=== PATIENT | female | born 2000 ===

== ENCOUNTER 2018-09-19 01:34 | Emergency (ER) | payer SELFPAY ==
[2018-09-19] MEDS ORDERED: DUONEB *Not for PRN Use IH ONE (01:37)
[2018-09-19] MEDS ORDERED: MAGNESIUM SULFATE 2GM/50ML 2 GM/50 ML BAG IV ONE ×2 (01:48→01:51)
[2018-09-19] MEDS ORDERED: SOLU-Medrol IV ONE (01:48)
[2018-09-19] MEDS ORDERED: PROVENTIL IH ONE (01:48)
[2018-09-19] MEDS ORDERED: ATROVENT IH ONE (01:48)
[2018-09-19] MEDS ORDERED: SOLU-Medrol ONE (01:50)
--- NOTE | 2018-09-19 04:24 | Emergency Department Report ---
ED Shortness of Breath HPI - General Chief Complaint: Dyspnea/Respdistress Stated Complaint: ASTHMA ATTACK SOB CHEST PAIN Time Seen by Provider: 09/19/18 01:47 Source: patient Mode of arrival: Ambulatory Limitations: No Limitations - History of Present Illness Initial Comments: 18-year-old female history of asthma presents to ED with shortness of breath that started yesterday. Patient denies fever or cough. MD Complaint: "asthma attack" -: days(s) (1) Severity: moderate Consistency: constant Improves With: nothing Worsens With: exertion Known History Of: asthma Associated Symptoms: denies other symptoms - Related Data Previous Rx's Medication Instructions Recorded Last Taken Type Albuterol Sulfate [Proventil Hfa] 2 puff IH Q4HR PRN #1 hfa.[email or web address] 09/19/18 Unknown Rx predniSONE [Deltasone] 50 mg PO QDAY #5 tab 09/19/18 Unknown Rx Allergies Allergy/AdvReac Type Severity Reaction Status Date / Time carbinoxamine [From Palgic D] Allergy Unknown Verified 09/19/18 01:36 latex Allergy Rash Verified 09/19/18 01:36 pseudoephedrine Allergy Unknown Verified 09/19/18 01:36 [From Palgic D] ED Review of Systems ROS: Stated complaint: ASTHMA ATTACK SOB CHEST PAIN Other details as noted in HPI Comment: All other systems reviewed and negative Constitutional: denies: chills, fever Respiratory: shortness of breath, wheezing Cardiovascular: denies: chest pain ED Past Medical Hx - Past Medical History Previous Medical History?: Yes Hx Asthma: Yes - Surgical History Past Surgical History?: No - Social History Smoking Status: Never Smoker Substance Use Type: None - Medications Home Medications: Home Medications Medication Instructions Recorded Confirmed Last Taken Type Albuterol Sulfate [Proventil Hfa] 2 puff IH Q4HR PRN #1 hfa.aer.ad 09/19/18 Unknown Rx predniSONE [Deltasone] 50 mg PO QDAY #5 tab 09/19/18 Unknown Rx ED Physical Exam - General Limitations: No Limitations General appearance: alert, obese - Head Head exam: Present: atraumatic, normocephalic - Eye Eye exam: Present: normal appearance - ENT ENT exam: Present: mucous membranes moist - Neck Neck exam: Present: normal inspection - Respiratory Respiratory exam: Present: respiratory distress, wheezes - Cardiovascular Cardiovascular Exam: Present: regular rate, normal rhythm - GI/Abdominal GI/Abdominal exam: Present: soft. Absent: distended, tenderness - Extremities Exam Extremities exam: Absent: pedal edema, calf tenderness - Neurological Exam Neurological exam: Present: alert, oriented X3 - Psychiatric Psychiatric exam: Present: normal affect, normal mood - Skin Skin exam: Present: warm, dry, intact, normal color. Absent: rash ED Course Vital Signs 09/19/18 09/19/18 09/19/18 01:37 01:54 03:05 Temperature 97.1 F L Pulse Rate 90 Pulse Rate [ 73 100 H Throughout] Respiratory 18 Rate Respiratory 18 18 Rate [ Throughout] Blood Pressure 123/87 O2 Sat by Pulse 98 Oximetry ED Medical Decision Making - Medical Decision Making - O2 sats normal, wheezing x 1 day - abuterol nebs, mag sulfate, solumedrol given - pt much improved at this time - speaks in complete sentences - ambulated around ED, O2 sats remain normal, no wheezing - will d/c at this time - return precautions given - outpt f/u advised Critical care attestation.: If time is entered above; I have spent that time in minutes in the direct care of this critically ill patient, excluding procedure time. ED Disposition Clinical Impression: Asthma with acute exacerbation Disposition: DC-01 TO HOME OR SELFCARE Is pt being admited?: No Condition: Stable Instructions: Asthma (ED) Referrals: REGINA LONG MD [Primary Care Provider] - 3-5 Days PRIMARY CAREMD [Referring] - 3-5 Days
[2018-09-19 04:44] VITALS: BP 116/71
== END 2018-09-19 04:43 | disposition home or self-care (01) ==
LOC: ED 01:34
DX: J45.901 Unspecified asthma with (acute) exacerbation (principal); Z88.8 Allergy status to other drugs, medicaments and biological substances; Z91.040 Latex allergy status
CPT/HCPCS: 94644; 96365; 96375; 99283; J2930; J3475